=== PATIENT | male | born 1940 | race Caucasian/White ===

== ENCOUNTER 2021-11-30 10:46 | Emergency (ER) | payer OTHER, SELFPAY ==
[~2021-11-30] VITALS: Ht 182.9 cm; Wt 95.3 kg
[~2021-11-30 10:46] MED LIST: OMEP20CA15 PO
[2021-11-30 10:54] VITALS: BP_SYST 150
--- NOTE | 2021-11-30 11:10 | NUR ---
to eye station to irrigate eyes
--- NOTE | 2021-11-30 11:13 | NUR ---
Patient to ER bed 2 to gown for evaluation. Side rails up. assumed care.
--- NOTE | 2021-11-30 11:21 | NUR ---
pt. bib with c/o burning like pain to both eyes, stated was working in yard last night and thinks he got a "milky like substance" from a plant in his eyes, rates pain 5/10 and c/o blurry vision to right eye
--- NOTE | 2021-11-30 11:48 | NUR ---
ER at bedside examining patient.
--- NOTE | 2021-11-30 13:26 | NUR ---
Dr. Garrett discussed PPOC with pt. regarding finding an optomologist and will medicate for pain
[2021-11-30] MEDS ORDERED: IBUPROFEN 600 MG TABLET PO ONE (13:45)
--- NOTE | 2021-11-30 13:51 | NUR ---
eyes irrigated with water
[2021-11-30 13:57] VITALS: BP_SYST 128
--- NOTE | 2021-11-30 13:58 | NUR ---
Patient and pts. given written and verbal discharge instructions and verbalizes understanding. ER Dr. Garrett discussed with patient the results and treatment provided. Patient in stable condition. ID arm band removed. Patient educated on pain management and to follow up with Dr. Pritchard eye MD today, officeexpecting pt. Pain Scale 5. Opportunity for questions provided and answered.
== END 2021-11-30 13:58 | disposition home or self-care (01) ==
LOC: SED 10:46
DX: S00.211A Abrasion of right eyelid and periocular area, initial encounter (principal); X58.XXXA Exposure to other specified factors, initial encounter; Y93.9 Activity, unspecified; Y92.9 Unspecified place or not applicable; Y99.9 Unspecified external cause status
CPT/HCPCS: 99282; 99283

== ENCOUNTER 2024-06-19 10:05 | Emergency (ER) | payer BC, OTHER ==
[~2024-06-19] VITALS: Ht 182.9 cm; Wt 95.3 kg
[2024-06-19 10:11] VITALS: BP_SYST 137; PULSE 67; RESP 18; TEMP 98.3; O2SAT 97
[2024-06-19 10:45] LABS: BASOPHILS % (AUTO) 0.4 % (0.0-2.0); EOSINOPHILS # (AUTO) 0.2 K/uL (0.0-0.4); EOSINOPHILS % (AUTO) 3.2 % (0.0-4.0); HEMATOCRIT 38.3 % (36-54); HEMOGLOBIN 12.7 g/dL (14.0-18.0); LYMPHOCYTES # (AUTO) 1.6 K/uL (1.0-5.5); MEAN CORPUSCULAR HEMOGLOBIN 29 pg (27-31); MEAN CORPUSCULAR HGB CONC 33 % (32-36); MEAN CORPUSCULAR VOLUME 87 fL (79.0-98.0); MONOCYTES # (AUTO) 0.5 K/uL (0.0-1.0); MONOCYTES % (AUTO) 7.6 % (1.7-9.3); NEUTROPHILS # (AUTO) 4.2 K/uL (1.8-7.7); NEUTROPHILS % (AUTO) 63.8 % (40.0-70.0); PLATELET COUNT (AUTO) 229 K/uL (130-430); RED CELL DISTRIBUTION WIDTH 14.4 % (9.0-15.0); WHITE BLOOD COUNT (AUTO) 6.5 K/uL (4.8-10.8)
[2024-06-19 10:53] LABS: BILIRUBIN,URINE NEGATIVE (NEGATIVE); BLOOD, URINE NEGATIVE (NEGATIVE); CLARITY/URINE CLEAR (CLEAR); COLOR,URINE YELLOW (YELLOW); GLUCOSE,URINE NEGATIVE (NEGATIVE); KETONES,URINE NEGATIVE (NEGATIVE); LEUKOCYTE ESTERASE ,URINE NEGATIVE (NEGATIVE); NITRITE, URINE NEGATIVE (NEGATIVE); PROTEIN URINE NEGATIVE (NEGATIVE)
[2024-06-19 10:54] LABS: ANION GAP 6 (5-15); CALCIUM 8.7 mg/dL (8.4-11.0); CARBON DIOXIDE 28 mmol/L (23-29); CHLORIDE 110 mmol/L (98-107); CREATININE 1.22 mg/dL (0.55-1.30); GLUCOSE 105 mg/dL (74-106); POTASSIUM 4.8 mmol/L (3.5-5.1); SODIUM SERUM 144 mmol/L (136-145); UREA NITROGEN, BLOOD 18 mg/dL (8-21)
[2024-06-19] MEDS ORDERED: METR-154 PO (12:06)
[2024-06-19] MEDS ORDERED: CIPR500T5 PO (12:06)
[2024-06-19 12:15] VITALS: BP_SYST 137; PULSE 67; RESP 18; TEMP 98.3; O2SAT 97
== END 2024-06-19 12:16 | disposition home or self-care (01) ==
LOC: SED 10:05
DX: K57.92 Diverticulitis of intestine, part unspecified, without perforation or abscess without bleeding (principal); R10.30 Lower abdominal pain, unspecified; Z79.899 Other long term (current) drug therapy
CPT/HCPCS: 36415; 80048; 81001; 81003; 85025; 99284